=== PATIENT | female | born 1955 | race American Indian/Alaskan Native ===

== ENCOUNTER 2017-02-28 10:37 | Emergency (ER) | payer OTHER ==
[2017-02-28 10:48] VITALS: TEMP 98.7; BMI 23.8
[2017-02-28] MEDS ORDERED: ONDANSETRON 4 MG/2 ML VIAL IVPUSH ONE (11:38)
[2017-02-28] MEDS ORDERED: ACETAMINOPHEN 1000 MG/100 ML VIAL (NON FORMULARY) IVPB ONE (11:38)
[2017-02-28] MEDS ORDERED: SODIUM CHLORIDE 1,000 ML IV STA (11:38)
--- NOTE | 2017-02-28 11:38 | PDOC ---
History of Present Illness - General Chief Complaint: Pain Stated Complaint: COUGH, ABD PAIN Time Seen by Provider: 02/28/17 11:28 History Source: Patient Exam Limitations: No Limitations - History of Present Illness Travel History: No Initial Comments: 02/28/17 14:46 This 62 year female with c/o abdominal pain for the past week. She says it started on and off for one week with cramp like, sharp like nausea vomiting and diarrhea intermittently. She did some home remedy but today it came on again. She denies fever but had a wave of coolness come over. She is now here with her with c/o and wants to know what it is. PMH: DM, HTN, Cholecystitis Past History - Past Medical History Allergies/Adverse Reactions: Allergies Allergy/AdvReac Type Severity Reaction Status Date / Time No Known Allergies Allergy Verified 02/28/17 12:45 Home Medications: Ambulatory Orders Glipizide [Glipizide ER] 5 mg PO DAILY 07/07/13 Losartan Potassium [Cozaar] 50 mg PO DAILY 07/07/13 Metoprolol Succinate [Toprol XL -] 50 mg PO DAILY 07/07/13 Sitagliptin Phos/Metformin HCl [Janumet 50-500 mg Tablet] 1 each PO DAILY Dulaglutide [Trulicity] 1.5 mg SQ WEEKLY 02/28/17 Esomeprazole Magnesium [Nexium 24Hr] 20 mg PO DAILY 02/28/17 COPD: No Diabetes: Yes HTN: Yes Hypercholesterolemia: Yes Kidney Stones: Yes - Surgical History Abdominal Surgery: Yes - Suicide/Smoking/Psychosocial Hx Smoking History: Never smoked Hx Alcohol Use: No Drug/Substance Use Hx: No Substance Use Type: None Abd/GI Specific PMHX - Complaint Specific PMHX Colitis: No Diverticulitis: Yes Gall Bladder Disease: Yes GERD: Yes Hepatitis: No Irritable Bowel Synd (IBS): No Pancreatitis: No GI Ulcer Disease: No Review of Systems - Review of Systems Able to Perform ROS?: Yes ABD/GI: Yes: See HPI, Diarrhea, Nausea, Vomiting. No: Abdominal Distended, Abd. Pain w/ defecation, Blood Streaked Bowels, Constipated, Difficulty Swallowing, Poor Appetite, Abdominal cramping All Other Systems: Reviewed and Negative *Physical Exam - Vital Signs Last Vital Signs Temp Pulse Resp BP Pulse Ox 98.7 F 98 H 20 144/85 100 02/28/17 10:45 02/28/17 10:45 02/28/17 10:45 02/28/17 10:45 02/28/17 10:45 - Physical Exam HEENT: positive: Normal Voice Respiratory/Chest: positive: Lungs Clear, Normal Breath Sounds Cardiovascular: positive: Regular Rate Gastrointestinal/Abdominal: positive: Normal Bowel Sounds, Flat, Soft, Tenderness (LLQ pain). negative: Increased Bowel Sounds, Decreased BS, Protuberent, Distended, Guarding, Rebound, Hernia, Mass, Hepatomegaly, Spleenomegaly Integumentary: positive: Dry, Warm Neurologic: positive: Fully Oriented, Alert ED Treatment Course - LABORATORY CBC & Chemistry Diagram: 02/28/17 11:51 02/28/17 11:51 Medical Decision Making - Medical Decision Making 02/28/17 14:52 Pt was initally seen and examined at bedside. She is complaining of LLQ abdominal pain for on and off for week. She denies fever but had n, v, d Abdominal/Pelvic CT ordered Labs pending UA pending IVF, zofran, ordered. CT abd neg for pathology Pt will be discharged to home with suggestive follow up with her PCP *DC/Admit/Observation/Transfer Diagnosis at time of Disposition: Diarrhea Qualifiers: Diarrhea type: unspecified type Qualified Code(s): R19.7 - Diarrhea, unspecified - Discharge Dispostion Disposition: HOME Condition at time of disposition: Good Admit: No - Referrals Referrals: [place] Dumont MD [Primary Care Provider] - - Patient Instructions Printed Discharge Instructions: DI for Abdominal Pain-Adult Additional Instructions: Discharge instructions 1 Stick with a bland diet without spices 2. drink water and avoid carbonation 3. follow up with your primary MD for referral to GI specialist - Post Discharge Activity
[2017-02-28 12:02] LABS: BASOPHIL 1.4 % (0-2.0); EOSINOPHIL 0.5 % (0-4.5); MCH 27.1 pg (25.7-33.7); MCHC 32.2 g/dl (32.0-36.0); MEAN CELL VOLUME 84.1 fl (80-96); MEAN PLT VOLUME 8.3 fl (7.5-11.1); NEUTROPHILS 72.8 % (42.8-82.8); PLATELET COUNT 333 K/MM3 (134-434); RDW 14.1 % (11.6-15.6); WHITE BLOOD COUNT 8.5 K/mm3 (4.0-10.0)
[2017-02-28] MEDS ORDERED: ACETAMINOPHEN INJECTION 100 ML IVPB ONE (12:02)
[2017-02-28] MEDS ORDERED: ONDANSETRON 4 MG/2 ML VIAL ONE (12:02)
[2017-02-28 12:52] LABS: ALBUMIN 3.8 g/dl (3.4-5.0); ALK PHOS 88 U/L (45-117); AMYLASE 53 U/L (25-115); ANION GAP 10 (8-16); BILIRUBIN,TOTAL 0.7 mg/dL (0.2-1.0); CALCIUM 9.3 mg/dL (8.5-10.1); CO2 24 mmol/L (21-32); CREATININE 0.6 mg/dL (0.55-1.02); GLUCOSE,RANDOM 201 mg/dL (74-106); SGOT/AST 9 U/L (15-37); SGPT/ALT 27 U/L (12-78); TOT PROT 7.2 g/dl (6.4-8.2)
[2017-02-28 13:17] LABS: URINE APPEARANCE CLOUDY; URINE BILIRUBIN NEGATIVE (NEGATIVE); URINE BLOOD NEGATIVE (NEGATIVE); URINE COLOR LTYELLOW; URINE GLUCOSE (UA) 3+ (NEGATIVE); URINE KETONE 1+ (NEGATIVE); URINE LEUK ESTERASE NEGATIVE (NEGATIVE); URINE NITRITE NEGATIVE (NEGATIVE); URINE PROTEIN NEGATIVE (NEGATIVE); URINE UROBILINOGEN NEGATIVE mg/dL (0.2-1.0)
[2017-02-28 15:48] VITALS: BP 115/76; PULSE 78
[2017-02-28 18:28] LABS: URINE LEUK ESTERASE Negative (NEGATIVE)
== END 2017-02-28 15:55 | disposition home or self-care (01) ==
LOC: JER 10:37
PROC: 3E033NZ Introduction of Analgesics, Hypnotics, Sedatives into Peripheral Vein, Percutaneous Approach (ICD-10-PCS; principal; 2017-02-28)
PROC: 3E033GC Introduction of Other Therapeutic Substance into Peripheral Vein, Percutaneous Approach (ICD-10-PCS; 2017-02-28)
DX: R19.7 Diarrhea, unspecified (principal); I10 Essential (primary) hypertension; E11.9 Type 2 diabetes mellitus without complications; Z79.84 Long term (current) use of oral hypoglycemic drugs; E78.00 Pure hypercholesterolemia, unspecified; Z87.442 Personal history of urinary calculi
CPT/HCPCS: 36415; 74178-TC; 80053; 81003; 82150; 83690; 85025; 99283-25; Q9967